=== PATIENT | male | born 1990 | race Caucasian/White ===

== ENCOUNTER 2016-09-12 13:20 | Emergency (ER) | payer SELFPAY ==
[2016-09-12] MEDS ORDERED: Promethazine HCl 25 MG/ML VIAL ONE (13:34)
[2016-09-12 13:49] LABS: #Basophils 0.1 thou/uL (0.0-0.2); #Lymphocytes 2.9 thou/uL (1.20-3.40); #Monocytes 0.9 thou/uL (0.11-0.59); #Neutrophils 10.7 thou/uL (1.40-6.50); %Basophils 0.8 % (0.0-1.0); %Eosinophils 0.1 % (0.0-10.0); %Monocytes 6.3 % (0.0-10.0); Mean Platelet Volume 7.7 fL (7.4-10.4); Red Blood Cell (RBC) Count 6.17 mill/uL (4.70-6.10); White Blood Cell (WBC) Count 14.6 thou/uL (4.8-10.8)
[2016-09-12 14:04] LABS: ALT (SGPT) 11 U/L (0-55); AST (SGOT) 16 U/L (5-34); Alkaline Phosphatase 101 U/L (40-150); Anion Gap 22 mmol/L (10-20); BUN (Urea Nitrogen) 16 mg/dL (8.9-20.6); Bilirubin, Total 1.5 mg/dL (0.2-1.2); Calc. Creatinine Clearance 0 mL/min (70-130); Calcium 10.8 mg/dL (7.8-10.44); Carbon Dioxide 22 mmol/L (22-29); Chloride 103 mmol/L (98-107); Estimated GFR-MDRD 81; Globulin 3.6 g/dL (2.4-3.5); Lipase 24 U/L (8-78)
== END 2016-09-12 14:37 | disposition home or self-care (01) ==
LOC: BURERS 13:20
DX: R11.2 Nausea with vomiting, unspecified (principal); R19.7 Diarrhea, unspecified; F17.210 Nicotine dependence, cigarettes, uncomplicated
CPT/HCPCS: 80053; 83690; 85025; 96361; 96374; J2550

== ENCOUNTER 2018-04-05 11:05 | Emergency (ER) | payer SELFPAY ==
[2018-04-05] MEDS ORDERED: AMOXicillin 250 MG CAP ONE (11:28)
[2018-04-05] MEDS ORDERED: HYDROcodone/Acetaminophen 10/325 mg Tablet ONE (11:28)
== END 2018-04-05 11:39 | disposition home or self-care (01) ==
LOC: BURERS 11:05
DX: K08.89 Other specified disorders of teeth and supporting structures (principal); F17.210 Nicotine dependence, cigarettes, uncomplicated
CPT/HCPCS: 99282

== ENCOUNTER 2018-04-15 12:17 | Emergency (ER) | payer SELFPAY ==
[~2018-04-15 12:17] MED LIST: Iopamidol 370 76% 100 ML VIAL ONE
[2018-04-15] MEDS ORDERED: Fentanyl 100 MCG/2 ML VIAL ONE (12:33)
[2018-04-15] MEDS ORDERED: Clindamycin/D5W 600 mg/50 ml Premix Bag ONE (13:47)
[2018-04-15] MEDS ORDERED: Ondansetron HCl/PF 4 MG/2 ML Vial ONE (14:06)
[2018-04-15 14:09] LABS: #Basophils 0.1 thou/uL (0.0-0.2); #Lymphocytes 2.2 thou/uL (1.20-3.40); #Monocytes 1.2 thou/uL (0.11-0.59); %Basophils 0.4 % (0.0-1.0); %Eosinophils 0.2 % (0.0-10.0); %Lymphocytes 15.3 % (21.0-51.0); %Monocytes 8.4 % (0.0-10.0); %Neutrophils 75.8 % (42.0-75.0); Hemoglobin 14.2 g/dL (14.0-18.0); Mean Corpuscular HGB CONC 35.2 g/dL (32.0-36.0); Mean Corpuscular Hemoglobin 30.8 pg (27.0-31.0); Mean Corpuscular Volume 87.3 fL (78.0-98.0); Mean Platelet Volume 8.7 fL (7.4-10.4); Platelet Count 469 thou/uL (130-400); RBC Distribution Width 11.1 % (11.5-14.5); Red Blood Cell (RBC) Count 4.62 mill/uL (4.70-6.10); White Blood Cell (WBC) Count 14.5 thou/uL (4.8-10.8)
[2018-04-15 14:21] LABS: ALT (SGPT) 13 U/L (8-55); AST (SGOT) 15 U/L (5-34); Albumin 4.3 g/dL (3.5-5.0); Alkaline Phosphatase 83 U/L (40-150); Anion Gap 16 mmol/L (10-20); BUN (Urea Nitrogen) 19 mg/dL (8.9-20.6); Bilirubin, Total 0.2 mg/dL (0.2-1.2); Calc. Creatinine Clearance 0 mL/min (70-130); Calcium 10.1 mg/dL (7.8-10.44); Carbon Dioxide 26 mmol/L (22-29); Chloride 102 mmol/L (98-107); Estimated GFR-MDRD Greater than 90; Globulin 3.7 g/dL (2.4-3.5); Glucose 95 mg/dL (70-105); Potassium 3.4 mmol/L (3.5-5.1); Sodium 141 mmol/L (136-145)
--- NOTE | 2018-04-15 14:40 | CT ---
POST CONTRAST SOFT TISSUE NECK CT: HISTORY: Left jaw pain and swelling, worsening. Previous toothache. COMPARISON: None. TECHNIQUE: Post contrast soft tissue neck CT is performed in the axial plane. Reformatted images are submitted for interpretation. FINDINGS: The visualized brain parenchyma is unremarkable. Bilateral ocular lenses are appropriately located. Both globes are intact. Retrobulbar fat is preserved. Adequate aeration of the sinuses and mastoid air cells. There is peripherally enhancing fluid centered about the left glassware maker space. This fluid tracks me dial to the left mandible. There is edema involving the left pterygoid muscles, as well as the left masseter muscle. There are no destructive changes of the left mandible. There appears to be subtle periapical lucency involving the root of the 17th tooth. No definite cortical disruption. The 17th tooth may be the origin of the infectious changes noted in the left glassware maker space. The peripheral ly enhancing fluid collection adjacent to the left mandible measures 2.8 x 1.7 cm. The left maxilla demonstrates some periapical lucencies, suggesting possible periapical abscesses involving tooth numb er 14. Additionally, there is evidence of periapical lucencies involving the third tooth. Midline fatty raphe of the tongue is preserved. Epiglottis is of normal caliber. Pre-epiglottic fat is preserved. Symmetric attenuation of the parotid and submandibular glands. Symmetric attenuation of the sternocl eidomastoid muscles. There are mildly enlarged left level V lymph nodes, presumably reactive. The largest left level V ly mph node measures 2 x 0.8 cm. Additionally enlarged left level V lymph nodes are noted. There is induration of the left parapharyngeal fat due to edema and inflammation. The central spinal canal is patent. There is no significant central canal stenosis or foraminal narr owing. Cervical spine vertebral body height is maintained. There is no fracture. The upper mediastinum and lung apices are unremarkable. Mild edema and soft tissue swelling of the dermis overlying the left glassware maker space and left mandib le. IMPRESSION: Periapical lucency involving the 17th tooth without cortical disruption of the adjacent mandible. Th ere are inflammatory changes centered in the left glassware maker space. There is evidence of a soft tiss ue abscess medial to the left mandible, as described above. There is associated phlegmonous change a nd edema in the left glassware maker space. POS: [facility]
== END 2018-04-15 14:53 | disposition home or self-care (01) ==
LOC: BURERS 12:17
DX: K04.7 Periapical abscess without sinus (principal); F17.210 Nicotine dependence, cigarettes, uncomplicated
CPT/HCPCS: 36415; 70491; 80053; 85025; 96365; 96375; A4216; J2405; J3010; J3490

== ENCOUNTER 2018-09-11 09:28 | Emergency (ER) | payer SELFPAY | END 2018-09-11 09:53 | disposition home or self-care (01) | LOC: BURERS 09:28 | DX: L02.01 Cutaneous abscess of face (principal); F17.210 Nicotine dependence, cigarettes, uncomplicated | CPT/HCPCS: 99283 ==